=== PATIENT | female | born 1980 | race Caucasian/White ===

== ENCOUNTER 2020-12-28 10:08 | Outpatient (REF) | payer OTHER, SELFPAY ==
[2020-12-28 12:00] LABS: MANUAL DIFF FLAG NO
[2020-12-28 12:06] LABS: Basophils Absolute Auto 0.1 X10*3/uL (0.0-0.2); Basophils Percent Auto 0.9 % (0-2); Eosinophils Absolute Auto 0.2 X10*3/uL (0.0-0.4); Eosinophils Percent Auto 3.1 % (0-4); Hematocrit 42.3 % (37-47); Hemoglobin 13.8 g/dl (12.0-16.0); Imm Gran Abs Auto 0.03 X10*3/uL (0.00-0.03); Imm Gran Pct Auto 0.5 % (0.0-0.4); Lymphocytes Absolute Auto 1.4 X10*3/uL (1.2-4.9); Lymphocytes Percent Auto 23.9 % (20-40); Mean Corpuscular HGB Conc 32.6 g/dl (31.0-35.0); Mean Corpuscular Hemoglobin 28.9 pg (27.0-33.0); Mean Corpuscular Volume 88.5 fL (80-98); Mean Platelet Volume 9.5 fL (9.4-12.3); Monocytes Absolute Auto 0.6 X10*3/uL (0.1-1.2); Neutrophils Absolute Auto 3.5 X10*3/uL (2.0-8.3); Neutrophils Percent Auto 60.6 % (45-73); Platelet Count 394 X10*3/uL (160-400); Red Blood Count 4.78 X10*6/uL (4.20-5.50); Red Cell Distribution Width 12.6 % (11.0-16.0); White Blood Count 5.7 X10*3/uL (4.8-10.8)
[2020-12-28 12:33] LABS: Anion Gap 12 (12-20); Blood Urea Nitrogen 9 mg/dL (9-16); Calcium 9.7 mg/dL (8.4-10.2); Carbon Dioxide 25 mmol/L (22-29); Chloride 109 mmol/L (96-108); Estimated Glomerular Filt Rate > 60; Glucose Random 66 mg/dL (60-115); Potassium 4.4 mmol/L (3.3-5.1); Sodium 142 mmol/L (135-145)
[2020-12-28 13:03] LABS: Thyroid Stimulating Hormone 1.32 uIU/mL (0.32-4.0)
[2020-12-28 13:26] LABS: Erythrocyte Sedimentation Rate 9 MM/HR (0-20)
[2020-12-28 13:33] LABS: T4 Thyroxine 6.2 ug/dL (4.5-12.0)
== END 2020-12-28 10:09 | disposition home or self-care (01) ==
LOC: HO.LAB 10:08
PROVIDERS: Visit Provider Psychiatry & Neurology Neurology
DX: G37.9 Demyelinating disease of central nervous system, unspecified (principal); G40.909 Epilepsy, unspecified, not intractable, without status epilepticus
CPT/HCPCS: 36415; 80048; 84436; 84443; 85025; 85652

== ENCOUNTER 2021-01-07 17:50 | Outpatient (REF) | payer OTHER, SELFPAY ==
--- NOTE | ~2021-01-07 | MR_ITS ---
EXAMINATION: MR BRAIN WITHOUT AND WITH CONTRAST CLINICAL INFORMATION: 40-year-old with demyelinating disease. COMPARISON: 12/18/2019 MRI TECHNIQUE: Multiplanar, multisequence MRI of the brain was obtained before and after the intravenous administration of 6.5 mL Gadavist. FINDINGS: Brain Volume: Within normal limits. 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 There is no associated atrophy of the optic chiasm or pituitary infundibulum associated with this and therefore, this may reflect a forme fruste. Brain and Meninges: Redemonstrated are multiple small T2 hyperintense white matter lesions in the subcortical and deeper white matter of both cerebral hemispheres. One of these in the anterior right frontal lobe measures 5 mm and is increased in size. Multiple other lesions are stable. No infratentorial lesions are identified. DWI imaging demonstrates no restricted diffusion to suggest acute or subacute cerebral ischemia. There is no abnormal enhancement, mass lesion, space-occupying process or mass effect. There is no evidence for hemorrhage, hemosiderin staining or abnormal mineral deposition. No extra-axial fluid collections are identified. Ventricles and Subarachnoid Spaces: The ventricular system and subarachnoid spaces are stable in appearance without hydrocephalus. See above. Orbital Structures: The visualized orbital structures are grossly unremarkable within the limitations of the study. Vascular: Signal voids are noted in the visualized major intracranial vessels. Sinuses and Osseous Structures: Osseous structures appear grossly unremarkable and intact. MR/MR head/brain wo/w con IMPRESSION: 1. Multiple nonenhancing bilateral white matter lesions, most of which are stable with one lesion in the right subcortical frontal white matter appearing larger on current study without restricted diffusion. 2. 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 No obvious findings of optic atrophy associated with this on limited assessment of the structures on current study. 3. Follow-up as per clinical indications.
== END 2021-01-07 17:51 | disposition home or self-care (01) ==
LOC: HO.MRI 17:50
PROVIDERS: Visit Provider Psychiatry & Neurology Neurology
DX: G37.9 Demyelinating disease of central nervous system, unspecified (principal)
CPT/HCPCS: 70553; A9585

== ENCOUNTER 2021-02-17 12:50 | Outpatient (REF) | payer OTHER, SELFPAY ==
--- NOTE | 2021-02-17 12:54 | EEG_ITS ---
The waking background activity consists of low voltage fast frequencies seen diffusely, intermixed posteriorly with low amplitude, 10 to 11 hertz symmetrical alpha. During drowsiness, there is diffuse theta slowing. Sleep stages identified with symmetrical frontal central sleep spindles, vertex sharp transients, and K complexes. Brief stage 4 sleep with delta diffusely is also noted. Arousals are unremarkable. The patient remains asymptomatic other than headache. No paroxysmal features are identified. IMPRESSION: This 24-hour ambulatory EEG is within normal limits. MD NAKUL Ruano/RAJ / [id number]
== END 2021-02-17 12:51 | disposition home or self-care (01) ==
LOC: HO.NEURO 12:50
PROVIDERS: Visit Provider Psychiatry & Neurology Neurology
DX: G40.909 Epilepsy, unspecified, not intractable, without status epilepticus (principal)
CPT/HCPCS: 95708; 95957

== ENCOUNTER 2022-09-12 08:59 | Outpatient (REF) | payer OTHER, SELFPAY ==
[2022-09-12 09:13] LABS: MANUAL DIFF FLAG NO
[2022-09-12 09:38] LABS: Basophils Absolute Auto 0.1 X10*3/uL (0.0-0.2); Basophils Percent Auto 0.9 % (0-2); Eosinophils Absolute Auto 0.2 X10*3/uL (0.0-0.4); Eosinophils Percent Auto 3.1 % (0-4); Hematocrit 43.2 % (37.0-47.0); Hemoglobin 14.4 g/dl (12.0-16.0); Imm Gran Abs Auto 0.03 X10*3/uL (0.00-0.03); Imm Gran Pct Auto 0.5 % (0.0-0.4); Lymphocytes Absolute Auto 1.7 X10*3/uL (1.2-4.9); Lymphocytes Percent Auto 26.8 % (20-40); Mean Corpuscular HGB Conc 33.3 g/dl (31.0-35.0); Mean Corpuscular Hemoglobin 28.3 pg (27.0-33.0); Mean Platelet Volume 8.8 fL (9.4-12.3); Monocytes Absolute Auto 0.6 X10*3/uL (0.1-1.2); Neutrophils Absolute Auto 3.9 x10*3/uL (2.0-8.3); Neutrophils Percent Auto 59.7 % (45-73); Platelet Count 398 X10*3/uL (160-400); Red Blood Count 5.08 X10*6/uL (4.20-5.50); Red Cell Distribution Width 12.5 % (11.0-16.0); White Blood Count 6.5 X10*3/uL (4.8-10.8)
[2022-09-12 10:08] LABS: Alanine Aminotransferase 15 U/L (0-31); Albumin Level 4.5 g/dL (3.5-5.0); Alkaline Phosphatase 66 U/L (39-117); Anion Gap 11 (12-20); Aspartate Amino Transferase 17 U/L (5-31); Bilirubin Total 0.5 mg/dL (0.0-1.0); Blood Urea Nitrogen 11 mg/dL (9-16); Calcium 9.7 mg/dL (8.4-10.2); Carbon Dioxide 25 mmol/L (22-29); Chloride 107 mmol/L (96-108); Estimated Glomerular Filt Rate > 60; Glucose Random 77 mg/dL (60-115); Potassium 4.2 mmol/L (3.3-5.1); Sodium 139 mmol/L (135-145); Total Protein 7.1 g/dL (6.5-8.0)
[2022-09-12 10:19] LABS: Erythrocyte Sedimentation Rate 5 MM/HR (0-20)
[2022-09-12 10:24] LABS: Thyroid Stimulating Hormone 2.31 uIU/mL (0.32-4.0)
== END 2022-09-12 09:00 | disposition home or self-care (01) ==
LOC: HO.LAB 08:59
PROVIDERS: Visit Provider Psychiatry & Neurology Neurology
DX: G47.00 Insomnia, unspecified (principal)
CPT/HCPCS: 36415; 80053; 84443; 85025; 85652

== ENCOUNTER 2022-12-27 16:24 | Outpatient (REF) | payer OTHER, SELFPAY ==
[2022-12-27 16:37] LABS: MANUAL DIFF FLAG NO
[2022-12-27 17:16] LABS: Basophils Absolute Auto 0.1 X10*3/uL (0.0-0.2); Basophils Percent Auto 0.7 % (0-2); Eosinophils Absolute Auto 0.2 X10*3/uL (0.0-0.4); Eosinophils Percent Auto 1.9 % (0-4); Hematocrit 45.5 % (37.0-47.0); Imm Gran Abs Auto 0.03 X10*3/uL (0.00-0.03); Imm Gran Pct Auto 0.3 % (0.0-0.4); Lymphocytes Absolute Auto 2.1 X10*3/uL (1.2-4.9); Lymphocytes Percent Auto 23.6 % (20-40); Mean Corpuscular Hemoglobin 28.3 pg (27.0-33.0); Mean Corpuscular Volume 85.8 fL (80.0-98.0); Mean Platelet Volume 9.2 fL (9.4-12.3); Monocytes Percent Auto 11.1 % (2-11); Neutrophils Absolute Auto 5.5 x10*3/uL (2.0-8.3); Neutrophils Percent Auto 62.4 % (45-73); Platelet Count 399 X10*3/uL (160-400); Red Cell Distribution Width 12.9 % (11.0-16.0); White Blood Count 8.8 X10*3/uL (4.8-10.8)
[2022-12-27 17:22] LABS: Anion Gap 11 (12-20); Blood Urea Nitrogen 8 mg/dL (9-16); Calcium 9.5 mg/dL (8.4-10.2); Carbon Dioxide 25 mmol/L (22-29); Chloride 108 mmol/L (96-108); Estimated Glomerular Filt Rate > 60; Glucose Random 91 mg/dL (60-115); Potassium 4.2 mmol/L (3.3-5.1); Sodium 140 mmol/L (135-145)
[2022-12-27 17:38] LABS: Thyroid Stimulating Hormone 1.74 uIU/mL (0.32-4.0)
[2022-12-27 18:32] LABS: Erythrocyte Sedimentation Rate 7 MM/HR (0-20)
== END 2022-12-27 16:25 | disposition home or self-care (01) ==
LOC: HO.LAB 16:24
PROVIDERS: Visit Provider Psychiatry & Neurology Neurology
DX: M51.26 Other intervertebral disc displacement, lumbar region (principal)
CPT/HCPCS: 36415; 80048; 82550; 84443; 85025; 85652

== ENCOUNTER 2023-02-06 09:45 | Outpatient (REF) | payer OTHER, SELFPAY ==
--- NOTE | ~2023-02-06 | MR_ITS ---
EXAMINATION: MR BRAIN WITHOUT AND WITH CONTRAST CLINICAL INFORMATION: Follow up demyelinating disease. COMPARISON: 01/07/2021 MRI. TECHNIQUE: Multiplanar, multisequence MRI of the brain was obtained before and after the intravenous administration of 6 mL Gadavist. FINDINGS: Brain Volume: Within normal limits within the limitations of qualitative assessment, grossly unchanged. 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 Brain and Meninges: DWI sequence demonstrates no restricted diffusion to suggest acute or subacute cerebral ischemia. Again noted are multiple T2 hyperintense, nonenhancing white matter lesions in the subcortical white matter of both cerebral hemispheres, largely similar to the previous exam. No definite new lesions are seen. No posterior fossa lesions are identified, and there is no abnormal intracranial enhancement. No intracranial mass lesions, space-occupying process or mass effect. Gradient refocused imaging demonstrates no abnormal susceptibility-weighted signal loss to suggest hemorrhage, hemosiderin staining or abnormal mineralization. Ventricles and Subarachnoid Spaces: The ventricular system and subarachnoid spaces are stable in appearance without hydrocephalus. See above. Orbital Structures: The visualized orbital structures are grossly unremarkable within the limitations of the study. Vascular: Signal voids are noted in the visualized major intracranial vessels. Osseous Structures, Sinuses/Mastoids, Extracranial Soft Tissues: Osseous marrow signal intensity appears grossly within normal limits. The visualized sinonasal structures and extracranial soft tissues appear grossly within normal limits. MR/MR head/brain wo/w con IMPRESSION: 1. Stable nonenhancing white matter lesions in both cerebral hemispheres with no definite new lesions and no abnormal intracranial enhancement. 2. 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
[2023-02-06] MEDS: gadobutroL 7.5 ML VIAL IVPUSH (10:52)
== END 2023-02-06 09:46 | disposition home or self-care (01) ==
LOC: HO.MRI 09:45
PROVIDERS: Visit Provider Psychiatry & Neurology Neurology
DX: G37.9 Demyelinating disease of central nervous system, unspecified (principal)
CPT/HCPCS: 70553; A9585

== ENCOUNTER 2023-03-20 09:27 | Outpatient (REF) | payer OTHER, SELFPAY ==
[2023-03-22 04:53] LABS: Lyme Abs Screen <0.90 index
[2023-03-25 10:38] LABS: Anti Nuclear Antibody Screen NEGATIVE (NEGATIVE)
== END 2023-03-20 09:28 | disposition home or self-care (01) ==
LOC: HO.LAB 09:27
PROVIDERS: Visit Provider Psychiatry & Neurology Neurology
DX: R20.2 Paresthesia of skin (principal)
CPT/HCPCS: 36415; 86038; 86617; 86618